=== PATIENT | female | born 1990 | race American Indian/Alaskan Native ===

== ENCOUNTER 2017-03-07 02:08 | Emergency (ER) | payer OTHER ==
--- NOTE | 2017-03-07 02:28 | ED PDOC ---
Arrival/HPI - General Time Seen by Provider: 03/07/17 02:21 Historian: Patient - History of Present Illness Narrative History of Present Illness (Text): 03/07/17 02:27 Negrito Tavera is a 26 year old female, whose past medical history includes fibromyalgia and asthma, who presents to the Emergency department complaining of nausea and vomiting. Patient states she has been experiencing nausea with multiple episodes of vomiting since yesterday. Patient notes associated nausea, dizziness, and abdominal cramping. Patient notes she had pizza for dinner. Patient denies any fever, chills, chest pain, shortness of breath, diarrhea, urinary symptoms, back pain, neck pain, or any other complaints. Time/Duration: Other (yesterday) Symptom Onset: Gradual Symptom Course: Unchanged Activities at Onset: Light Context: Home Past Medical History - Provider Review Nursing Documentation Reviewed: Yes Family/Social History - Physician Review Nursing Documentation Reviewed: Yes Family/Social History: Unknown Family HX Allergies/Home Meds Allergies/Adverse Reactions: Allergies No Known Allergies Allergy (Verified 03/07/17 02:30) Review of Systems - Physician Review All systems were reviewed & negative as marked: Yes - Review of Systems Constitutional: Normal. absent: Fevers Eyes: Normal ENT: Normal Respiratory: Normal. absent: SOB, Cough Cardiovascular: Normal. absent: Chest Pain Gastrointestinal: Abdominal Pain, Nausea, Vomiting Genitourinary Female: Normal. absent: Dysuria, Frequency, Hematuria, Urine Output Changes Musculoskeletal: Normal. absent: Back Pain, Neck Pain Skin: Normal. absent: Rash Neurological: Headache. absent: Dizziness Endocrine: Normal Hemo/Lymphatic: Normal Psychiatric: Normal Physical Exam Vital Signs Reviewed: Yes Vital Signs Temp Pulse Resp BP Pulse Ox 03/07/17 02:27 98.2 F 85 16 142/85 99 Temperature: Afebrile Blood Pressure: Normal Pulse: Regular Respiratory Rate: Normal Appearance: Positive for: Well-Appearing, Non-Toxic, Comfortable Pain Distress: None Mental Status: Positive for: Alert and Oriented X 3 - Systems Exam Head: Present: Atraumatic, Normocephalic Pupils: Present: PERRL Extroacular Muscles: Present: EOMI Conjunctiva: Present: Normal Mouth: Present: Moist Mucous Membranes Neck: Present: Normal Range of Motion Respiratory/Chest: Present: Clear to Auscultation, Good Air Exchange. No: Respiratory Distress, Accessory Muscle Use Cardiovascular: Present: Regular Rate and Rhythm, Normal S1, S2. No: Murmurs Abdomen: Present: Normal Bowel Sounds. No: Tenderness, Distention, Peritoneal Signs Back: Present: Normal Inspection Upper Extremity: Present: Normal Inspection. No: Cyanosis, Edema Lower Extremity: Present: Normal Inspection. No: Edema Neurological: Present: GCS=15, CN II-XII Intact, Speech Normal Skin: Present: Warm, Dry, Normal Color. No: Rashes Psychiatric: Present: Alert, Oriented x 3, Normal Insight, Normal Concentration Medical Decision Making ED Course and Treatment: 03/07/17 02:27 Impression: 26 year old female complaining of nausea, vomiting, headache, and dizziness since yesterday. Differential Diagnosis included but are not limited to: gastritis vs. headache vs. abdominal pain Plan: -- CT Abdomen and Pelvis with IV contrast -- CT Head w/o contrast -- Labs, lipase -- Urinalysis -- IV fluids -- Toradol -- Reglan -- Reassess and disposition Progress Notes: 03/07/17 04:43 reviewed radiology, CT Head shows: 1. No acute intracranial abnormality. CT Abdomen and Pelvis shows: 1. Probable RIGHT ovarian cyst. Consider ultrasound. 2. Incidental/non-acute findings are described above. 03/07/17 05:14 On reevaluation the patient feels better and is in no acute distress. I have discussed the results and plan with the patient, who expresses understanding. Patient given the opportunity to ask question, all questions were answered and there is agreement with the plan to discharge the patient home. Patient is stable for discharge. Patient was instructed to follow up with physician/clinic in 1-2 days or return if symptoms persist/worsen or new concerning symptoms arise. Re-evaluation Time: 05:14 Reassessment Condition: Re-examined, Improved - Lab Interpretations Lab Results: 03/07/17 02:50 03/07/17 02:50 Lab Results 03/07/17 02:50: Sodium 139, Potassium 5.2 H, Chloride 103, Carbon Dioxide 26, Anion Gap 15, BUN 10, Creatinine 0.8, Est GFR ( Amer) > 60, Est GFR (Non- Af Amer) > 60, Random Glucose 106, Calcium 9.1, Total Bilirubin 1.2, AST 51 H, ALT 39, Alkaline Phosphatase 87, Total Protein 7.4, Albumin 4.2, Globulin 3.2, Albumin/Globulin Ratio 1.3, Lipase 30 03/07/17 02:50: PT 11.5, INR 1.05, APTT 35.5 03/07/17 02:50: WBC 10.1, RBC 4.19, Hgb 11.4 L, Hct 35.3 L, MCV 84.2, MCH 27.2, MCHC 32.3, RDW 13.6, Plt Count 283, MPV 9.8, Gran % 75.8 H, Lymph % (Auto) 16.6 L, [place] % (Auto) 6.7 H, Eos % (Auto) 0.8 L, Baso % (Auto) 0.1, Gran # 7.65 H, Lymph # 1.7, Kimble # 0.7 H, Eos # 0.1, Baso # 0.01 03/07/17 02:40: Urine Color Yellow, Urine Appearance Clear, Urine pH 6.5, Ur Specific [place] 1.025, Urine Protein 30 H, Urine Glucose (UA) Negative, Urine Ketones Negative, Urine Blood Negative, Urine Nitrate Negative, Urine Bilirubin Negative, Urine Urobilinogen 2.0 H, Ur Leukocyte Esterase Negative, Urine RBC 0 - 2, Urine WBC 0 - 2, Ur Epithelial Cells 4 - 5, Urine Bacteria Mod I have reviewed the lab results: Yes - RAD Interpretation Narrative RAD Interpretations (Text): CT Head shows: Brain: No intracranial hemorrhage. No mass. No definite edema. Ventricles: No hydrocephalus. Bones/joints: No acute fracture. Soft tissues: Unremarkable. Sinuses: No acute sinusitis. Mastoid air cells: No mastoid effusion. Orbits: Unremarkable as visualized. IMPRESSION: 1. No acute intracranial abnormality. CT Abdomen and Pelvis shows: Lower thorax: Small hiatal hernia. ABDOMEN: Liver: Unremarkable. No mass. Gallbladder and bile ducts: Cholecystectomy. No ductal dilation. Pancreas: No ductal dilation. No mass. Spleen: No splenomegaly. Adrenals: No mass. Kidneys and ureters: No mass. No hydronephrosis. Stomach and bowel: No definite mural thickening. No obstruction. Appendix: Probable appendectomy. PELVIS: Bladder: Unremarkable. Reproductive: 3.0 x 2.2 x 2.5 cm hypodense lesion within RIGHT ovary. ABDOMEN and PELVIS: Intraperitoneal space: Trace free fluid within pelvis. No free air. Bones/joints: No acute fracture. Soft tissues: Tiny umbilical hernia containing fat. Small ventral hernia containing fat. Vasculature: Unremarkable. No aneurysm. Lymph nodes: No pathologically enlarged lymph nodes. IMPRESSION: 1. Probable RIGHT ovarian cyst. Consider ultrasound. 2. Incidental/non-acute findings are described above. Radiology Orders: 03/07/17 02:51 ABD & PELVIS IV CONTRAST ONLY [CT] Stat HEAD W/O CONTRAST [CT] Stat Bun Machine Operator: Radiologist - Medication Orders Current Medication Orders: Sodium Chloride (Sodium Chloride 0.9%) 1,000 mls @ 100 mls/hr IV .Q10H STA Stop: 03/07/17 12:30 Last Admin: 03/07/17 03:02 Dose: 100 mls/hr eMAR Start Stop Document 03/07/17 03:02 EVANGELISTA (Rec: 03/07/17 03:03 [email or web address] [id number]) Intravenous Solution Start Date 03/07/17 Start Time 03:02 Discontinued Medications Ketorolac Tromethamine (Toradol) 30 mg IVP ONCE ONE Stop: 03/07/17 02:57 Last Admin: 03/07/17 03:07 Dose: 30 mg MAR Pain Assessment Document 03/07/17 03:07 EVANGELISTA (Rec: 03/07/17 03:08 [email or web address] [id number]) Pain Reassessment Is this a pain reassessment? No IVP Administration Document 03/07/17 03:07 EVANGELISTA (Rec: 03/07/17 03:08 [email or web address] [id number]) Charges for Administration # of IVP Administrations 1 Metoclopramide HCl (Reglan) 10 mg IVP STAT STA Stop: 03/07/17 02:32 Last Admin: 03/07/17 03:00 Dose: 10 mg IVP Administration Document 03/07/17 03:00 EVANGELISTA (Rec: 03/07/17 03:01 [email or web address] [id number]) Charges for Administration # of IVP Administrations 1 Oxycodone/Acetaminophen (Percocet 5/325 Mg Tab) 1 tab PO STAT STA Stop: 03/07/17 04:56 - Scribe Statement The provider has reviewed the documentation as recorded by the [facility] [place] Provider Scribe Attestation: All medical record entries made by the Scribe were at my direction and personally dictated by me. I have reviewed the chart and agree that the record accurately reflects my personal performance of the history, physical exam, medical decision making, and the department course for this patient. I have also personally directed, reviewed, and agree with the discharge instructions and disposition. Disposition/Present on Arrival - Present on Arrival Any Indicators Present on Arrival: No - Disposition Have Diagnosis and Disposition been Completed?: Yes Diagnosis: Headache, Abdominal pain Disposition: HOME/ ROUTINE Disposition Time: 05:15 Patient Problems: Current Active Problems Problem Status Onset Abdominal pain Acute Headache Acute Condition: GOOD Discharge Instructions (ExitCare): Acute Headache (ED), Acute Abdominal Pain ( ED) Prescriptions: Ondansetron [Zofran Odt] 8 mg PO TID PRN #10 odt PRN Reason: Nausea/Vomiting
[2017-03-07 02:30] VITALS: RESP 16; TEMP 98.2
[2017-03-07] MEDS ORDERED: Sodium Chloride 0.9% 1,000 ML IV STA (02:31)
[2017-03-07 02:49] LABS: PH,URINE 6.5 (4.7-8.0); URINE BILIRUBIN NEGATIVE (NEGATIVE); URINE BLOOD NEGATIVE (NEGATIVE); URINE GLUCOSE (UA) NEGATIVE (NEGATIVE); URINE KETONE NEGATIVE (NEGATIVE); URINE LEUKOCYTE ESTERASE NEGATIVE Leu/uL (NEGATIVE); URINE PROTEIN 30 mg/dL (<30 mg/dL)
[2017-03-07 02:50] LABS: URINE APPEARANCE CLEAR (CLEAR); URINE COLOR YELLOW (YELLOW)
[2017-03-07 03:05] LABS: BASO # 0.01 K/mm3 (0.0-2.0); BASO % 0.1 % (0.0-3.0); EOS # 0.1 (0.0-0.7); EOS % 0.8 % (1.5-5.0); GRAN # 7.65 (1.4-6.5); GRAN % 75.8 % (50.0-68.0); HEMATOCRIT 35.3 % (36.0-48.0); LYMPH # 1.7 (1.2-3.4); LYMPH % 16.6 % (22.0-35.0); MEAN CELL VOLUME 84.2 fl (80.0-105.0); MEAN CORPUSCULAR HEMOGLOBIN 27.2 pg (25.0-35.0); MEAN CORPUSCULAR HGB CONC 32.3 g/dl (31.0-37.0); MEAN PLATELET VOLUME 9.8 fl (7.0-11.0); MONO # 0.7 (0.1-0.6); MONO % 6.7 % (1.0-6.0); RED CELL DISTRIBUTION WIDTH 13.6 % (11.5-14.5); WHITE BLOOD COUNT 10.1 10^3/ul (4.5-11.0)
[2017-03-07 03:05] LABS: URINE BACTERIA MOD (NEG); URINE RBC 0 - 2 /hpf (0-2); URINE WBC 0 - 2 /hpf (0-6)
[2017-03-07 03:15] LABS: ALB/GLOB RATIO 1.3 (1.1-1.8); ALKALINE PHOSPHATASE 87 U/L (38-126); ALT/SGPT 39 U/L (7-56); AST/SGOT 51 U/L (14-36); BILIRUBIN,TOTAL 1.2 mg/dL (0.2-1.3); BLOOD UREA NITROGEN 10 mg/dL (7-21); CALCIUM 9.1 mg/dL (8.4-10.5); CARBON DIOXIDE 26 mmol/L (21-33); CHLORIDE 103 mmol/L (98-107); GFR AFRICAN-AMERICAN > 60; GLUCOSE,RANDOM 106 mg/dL (70-110); LIPASE 30 U/L (23-300); SODIUM 139 mmol/L (132-148); TOTAL PROTEIN 7.4 g/dL (5.8-8.3)
[2017-03-07 03:18] LABS: POTASSIUM 5.2 mmol/L (3.6-5.0)
[2017-03-07 03:25] LABS: INR 1.05 (0.93-1.08); PARTIAL THROMBOPLASTIN TIME 35.5 Seconds (25.1-36.5)
[2017-03-07] MEDS ORDERED: Iohexol 350 MG/100 ML VIAL ONE (04:01)
--- NOTE | 2017-03-07 04:38 | CT ---
EXAM: CT Head Without Intravenous Contrast CLINICAL HISTORY: 26 years old, female; Pain; Headache; Headache not specified; Additional info: [place] TECHNIQUE: Axial computed tomography images of the head/brain without intravenous contrast. All CT scans at this facility use one or more dose reduction techniques, viz.: automated exposure control; ma/kV adjustment per patient size (including targeted exams where dose is matched to indication; i.e. head); or iterative reconstruction technique. COMPARISON: No relevant prior studies available. FINDINGS: Brain: No intracranial hemorrhage. No mass. No definite edema. Ventricles: No hydrocephalus. Bones/joints: No acute fracture. Soft tissues: Unremarkable. Sinuses: No acute sinusitis. Mastoid air cells: No mastoid effusion. Orbits: Unremarkable as visualized. IMPRESSION: 1. No acute intracranial abnormality.
--- NOTE | 2017-03-07 04:50 | CT ---
EXAM: CT Abdomen and Pelvis With Intravenous Contrast CLINICAL HISTORY: 26 years old, female; Pain; Abdominal pain; Generalized; Additional info: Abd pain with nausea abd vomitin TECHNIQUE: Axial computed tomography images of the abdomen and pelvis with intravenous contrast. All CT scans at this facility use one or more dose reduction techniques, viz.: automated exposure control; ma/kV adjustment per patient size (including targeted exams where dose is matched to indication; i.e. head); or iterative reconstruction technique. Coronal and sagittal reformatted images were created and reviewed. CONTRAST: 100 mL of OMNI 350 administered intravenously. COMPARISON: No relevant prior studies available. FINDINGS: Lower thorax: Small hiatal hernia. ABDOMEN: Liver: Unremarkable. No mass. Gallbladder and bile ducts: Cholecystectomy. No ductal dilation. Pancreas: No ductal dilation. No mass. Spleen: No splenomegaly. Adrenals: No mass. Kidneys and ureters: No mass. No hydronephrosis. Stomach and bowel: No definite mural thickening. No obstruction. Appendix: Probable appendectomy. PELVIS: Bladder: Unremarkable. Reproductive: 3.0 x 2.2 x 2.5 cm hypodense lesion within RIGHT ovary. ABDOMEN and PELVIS: Intraperitoneal space: Trace free fluid within pelvis. No free air. Bones/joints: No acute fracture. Soft tissues: Tiny umbilical hernia containing fat. Small ventral hernia containing fat. Vasculature: Unremarkable. No aneurysm. Lymph nodes: No pathologically enlarged lymph nodes. IMPRESSION: 1. Probable RIGHT ovarian cyst. Consider ultrasound. 2. Incidental/non-acute findings are described above.
[2017-03-07] MEDS ORDERED: Oxycodone/Acetaminophen 5/325 mg Tab PO STA (04:55)
[2017-03-07 06:38] VITALS: BP 127/84; PULSE 86; O2SAT 100
== END 2017-03-07 06:39 | disposition home or self-care (01) ==
LOC: ED 02:08
DX: R10.84 Generalized abdominal pain (principal); R51 Headache; M79.7 Fibromyalgia
CPT/HCPCS: 70450; 74177; 80053; 81001; 83690; 85025; 85610; 85730; 96374; 96375; 99283; J1885; J2765; J7040; Q9967